=== PATIENT | male | born 1960 | race African-American/Black ===

== ENCOUNTER 2021-05-10 19:49 | Emergency (ER) | payer OTHER, SELFPAY ==
--- NOTE | ~2021-05-10 | XR_ITS ---
EXAMINATION: XR ABDOMEN KUB CLINICAL INDICATION: Constipation. Abdominal discomfort. COMPARISON: None TECHNIQUE: AP view of the abdomen. FINDINGS: Nondilated bowel gas pattern. A small volume of stool in the colon. No appreciable pneumoperitoneum. Lung bases are clear. Hernia mesh coils overlie the central abdomen. Phleboliths are present in the pelvis. 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 Status post left total hip arthroplasty. Left convex lumbar scoliosis with marked lumbar degenerative disc disease, most notably at L3-L4. XR/XR KUB IMPRESSION: Normal stool volume. No evidence of obstruction or ileus.
[2021-05-10 20:35] VITALS: BP 138/75; PULSE 68; RESP 18; TEMP 37; O2SAT 97; BMI 35.6
[2021-05-10 21:08] LABS: MANUAL DIFF FLAG NO
[2021-05-10 21:14] LABS: Basophils Percent Auto 0.6 % (0-2); Eosinophils Absolute Auto 0.3 X10*3/uL (0.0-0.4); Eosinophils Percent Auto 3.9 % (0-4); Hematocrit 40.7 % (42-52); Hemoglobin 13.6 g/dl (14.0-18.0); Imm Gran Abs Auto 0.01 X10*3/uL (0.00-0.03); Imm Gran Pct Auto 0.2 % (0.0-0.4); Lymphocytes Absolute Auto 2.8 X10*3/uL (1.2-4.9); Lymphocytes Percent Auto 43.6 % (20-40); Mean Corpuscular HGB Conc 33.4 g/dl (31.0-36.0); Mean Corpuscular Hemoglobin 31.4 pg (27.0-33.0); Mean Platelet Volume 9.2 fL (9.4-12.4); Monocytes Absolute Auto 0.7 X10*3/uL (0.1-1.2); Monocytes Percent Auto 11.4 % (2-11); Neutrophils Absolute Auto 2.6 X10*3/uL (2.0-8.3); Neutrophils Percent Auto 40.3 % (45-73); Platelet Count 245 X10*3/uL (160-400); Red Blood Count 4.33 X10*6/uL (4.60-5.80); White Blood Count 6.4 X10*3/uL (4.8-10.8)
[2021-05-10 21:28] LABS: Glucose Urine UA NEG (NEG); Leukocyte Esterase Urine NEG (NEG); Nitrite Urine NEG (NEG); UACC Culture Trigger NO; Urine Blood TRACE (NEG); Urine Ketones NEG (NEG); Urine Protein NEG (NEG-TRACE)
[2021-05-10 21:31] LABS: Appearance Urine CLEAR; Color Urine YELLOW
[2021-05-10 21:35] LABS: Alanine Aminotransferase 15 U/L (0-40); Albumin Level 4.2 g/dL (3.5-5.0); Alkaline Phosphatase 60 U/L (39-117); Anion Gap 14 (12-20); Aspartate Amino Transferase 21 U/L (5-37); Bilirubin Total 0.5 mg/dL (0.0-1.0); Blood Urea Nitrogen 7 mg/dL (9-16); Calcium 9.2 mg/dL (8.4-10.2); Carbon Dioxide 23 mmol/L (22-29); Chloride 107 mmol/L (96-108); Creatinine Clr Calc Pharmacy 117.9; Estimated Glomerular Filt Rate > 60; Glucose Random 88 mg/dL (60-115); Lipase 5 U/L (8-78); Potassium 3.8 mmol/L (3.3-5.1); Sodium 140 mmol/L (135-145); Total Protein 7.2 g/dL (6.5-8.0)
[2021-05-10 21:58] LABS: Bacteria Urine TRACE /LPF; Mucus Urine 1+ /LPF; RBC Urine 0-2 /HPF (0); WBC Urine 0-2 /HPF (0-4)
[2021-05-10 23:10] VITALS: BP 136/83; PULSE 58; RESP 15; TEMP 36.6; O2SAT 100
--- NOTE | 2021-05-10 23:17 | PC.NURSE ---
Pt resting on stretcher in NAD breathing with ease on RA, c/o mild RLQ abd pain, denies n/v/d, c/o I feel like I'm starting the cycle of constipation again. Pt with hx of 2 abd hernia repairs. PIV placed on L AC. Pt stretcher low locked, rails raised, call alvarez within reach. Pt awaiting provider eval
--- NOTE | 2021-05-10 23:38 | ED_ITS ---
HPI - Abdominal Pain General Chief Complaint: Abdominal Pain Stated Complaint: abd pain Time Seen by Provider: 05/10/21 22:27 Source: patient Mode of arrival: ambulatory History of Present Illness HPI narrative: 60-year-old male with history of erectile dysfunction, cluster headaches presents with progressive worsening of constipation over the past 2 years and states that over the past 2 weeks and his become much more prominent with abdominal discomfort without associated fever, chills, nausea, vomiting, obstipation, urinary pain/burning/frequency. Patient states it is usually resolved with MiraLax that he has become concerned because ?I never used a half to rely on anything to have a bowel movement?. He has not seen his primary care provider for this. Related Data Allergies Allergy/AdvReac Type Severity Reaction Status Date / Time shellfish derived Allergy Nausea Verified 05/10/21 20:39 Review of Systems Review of Systems Pertinent positives and negatives as stated in HPI 10 point review of systems is otherwise negative. Physical Exam Vital Signs: Vital Signs: Last Vital Signs Temp 98 F 05/10/21 23:10 Pulse 58 05/10/21 23:10 Resp 15 05/10/21 23:10 BP 136/83 05/10/21 23:10 Pulse Ox 100 05/10/21 23:10 Body Mass Index 35.6 VITAL SIGNS: Reviewed. GENERAL: Well developed, well nourished, in no acute distress. HEAD: Normocephalic/atraumatic EYES: PERRLA, EOMI OROPHARYNX: no oral lesions noted, posterior pharynx clear, moist mucosa LUNGS: Normal breath sounds. No adventitious sounds or accessory muscle use. SpO2<100> CARDIOVASCULAR: Regular rate and rhythm without noted murmurs, no JVD or lower extremity edema. ABDOMEN: Soft, minimal discomfort on palpation without rebound, non-distended with bowel sounds. MUSCULOSKELETAL: No tenderness, deformities, or effusions noted on gross inspection. EXTREMITIES: No cyanosis, clubbing or edema. SKIN: Inspection of the skin reveals no rashes NEUROLOGIC: Alert and oriented x 4. Strength and sensation to light touch were grossly intact x 4. Course Course Course Narrative: 60-year-old male with history and clinical presentation consistent with constipation without evidence to suggest diverticulitis/SBO/ or hepatobiliary etiology. Review of all investigations negative for acute findings to suggest obstruction, excessive constipation and all results discussed with the patient at bedside. Patient was strongly recommended to follow-up with his primary care provider for further workup as an outpatient. MDM - Abdominal Pain Lab Data Result diagrams: 05/10/21 21:03 05/10/21 21:03 Labs: Lab Results 05/10/21 05/10/21 05/10/21 Range/Units 21:03 21:03 21:15 WBC 6.4 (4.8-10.8) X10*3/uL RBC 4.33 L (4.60-5.80) X10*6/uL Hgb 13.6 L (14.0-18.0) g/dl Hct 40.7 L (42-52) % MCV 94.0 (80-98) fL MCH 31.4 (27.0-33.0) pg MCHC 33.4 (31.0-36.0) g/dl RDW 14.0 (11.0-16.0) % Plt Count 245 (160-400) X10*3/uL MPV 9.2 L (9.4-12.4) fL Immature Gran % (Auto) 0.2 (0.0-0.4) % Neut % (Auto) 40.3 L (45-73) % Lymph % (Auto) 43.6 H (20-40) % [place] % (Auto) 11.4 H (2-11) % Eos % (Auto) 3.9 (0-4) % Baso % (Auto) 0.6 (0-2) % Lymph # (Auto) 2.8 (1.2-4.9) X10*3/uL [place] # (Auto) 0.7 (0.1-1.2) X10*3/uL Eos # (Auto) 0.3 (0.0-0.4) X10*3/uL Baso # (Auto) 0.0 (0.0-0.2) X10*3/uL Abs Immat Gran (auto) 0.01 (0.00-0.03) X10*3/uL Absolute Neuts (auto) 2.6 (2.0-8.3) X10*3/uL Absolute Nucleated RBC 0.000 (0.0-0.012) X10*3/uL Nucleated RBC % (auto) 0.0 (0.0-0.2) /100WBC Sodium 140 (135-145) mmol/L Potassium 3.8 (3.3-5.1) mmol/L Chloride 107 (96-108) mmol/L Carbon Dioxide 23 (22-29) mmol/L Anion Gap 14 (12-20) BUN 7 L (9-16) mg/dL Creatinine 0.91 (0.5-1.4) mg/dL Estim Creat Clear Calc 117.9 Estimated GFR > 60 Random Glucose 88 (60-115) mg/dL Calcium 9.2 (8.4-10.2) mg/dL Total Bilirubin 0.5 (0.0-1.0) mg/dL AST 21 (5-37) U/L ALT 15 (0-40) U/L Alkaline Phosphatase 60 (39-117) U/L Total Protein 7.2 (6.5-8.0) g/dL Albumin 4.2 (3.5-5.0) g/dL Lipase 5 L (8-78) U/L Urine Color YELLOW Urine Appearance CLEAR Urine pH 6.0 (5.0-8.0) Ur Specific [place] 1.020 (1.005-1.025) Urine Protein NEG (NEG-TRACE) MG/DL Urine Glucose (UA) NEG (NEG) MG/DL Urine Ketones NEG (NEG) MG/DL Urine Blood TRACE (NEG) Urine Nitrite NEG (NEG) Ur Leukocyte Esterase NEG (NEG) Urine RBC 0-2 (0) /HPF Urine WBC 0-2 (0-4) /HPF Ur Squamous Epith Cells NONE /LPF Urine Bacteria TRACE /LPF Urine Mucus 1+ /LPF Discharge Plan Discharge Clinical Impression: Constipation, Abdominal discomfort Patient Disposition: Home, Self-Care Instructions: Constipation (ED), Fleet Enema (ED), High Fiber Diet (ED), Polyethylene Glycol 3350 (By mouth) Additional Instructions: 1. Resume all home medications as prescribed. 2. Recommend starting [id number] MiraLax, daily, to facilitate regular soft bowel movements. 3. Please follow-up with your primary care provider in the next 2-3 days for re- evaluation and further outpatient management which may include a referral to Gastroenterology. Do not hesitate to return to the ER for acute worsening of symptoms. Referrals: Erika Newberry MD [Primary Care Provider] - 2 days (Re-evaluation after patient seen here for concerns regarding increasing constipation with abdominal discomfort, workup negative for infection/UTI/obstruction. May cons[facility] referral for colonoscopy.) PMFSH Past Medical History Source: nursing notes reviewed Medical History Hip replacement planned Swelling of right testicle Surgical History H/O hernia repair S/P hip replacement Social History Social History Advance Directives: No Advance Directives Information Provided: No
[2021-05-11 01:27] VITALS: BP 131/78; PULSE 58; RESP 15; O2SAT 99
== END 2021-05-11 01:45 | disposition home or self-care (01) ==
PROVIDERS: Emergency Provider Student in an Organized Health Care Education/Training Program; PCP Internal Medicine
DX: K59.00 Constipation, unspecified (principal); R10.9 Unspecified abdominal pain; R51.9 Headache, unspecified
CPT/HCPCS: 36415; 74018; 80053; 81001; 83690; 85025; 99284